=== PATIENT | male | born 1965 | race Caucasian/White ===

== ENCOUNTER 2020-11-27 08:50 | Emergency (ER) | payer MEDICAID ==
[~2020-11-27] VITALS: Ht 167.6 cm; Wt 86.2 kg
[2020-11-27 08:51] VITALS: BP 140/85
--- NOTE | 2020-11-27 09:05 | NUR ---
55 YO M BIB SELF FOR C/C OF 8/10 POINTER FINGER PAIN ON R HAND X3 WEEKS. PT REPORTS "ELECTRIC SHOCK" SENSATION THAT RADIATES TO ELBOW. PT DENIES INJURY. NO EDEMA OR REDNESS VISUALIZED. ROM INTACT. RADIAL PULSES ARE EQUAL AND REGULAR. PT TAKING ALEVE WITH NO RELIEF OF PAIN, LAST DOSE AT 0700-220MG. BED LOCKED AND IN LOWEST POSITION. SIDE RAILS X1. MED HX: DENIES NKA
--- NOTE | 2020-11-27 09:11 | NUR ---
ERMD AT BEDSIDE EVALUATING PT
[2020-11-27] MEDS ORDERED: IBUP-2213 PO (09:18)
[2020-11-27 09:29] VITALS: BP 140/85
== END 2020-11-27 09:29 | disposition home or self-care (01) ==
LOC: MED 08:50
DX: M54.10 Radiculopathy, site unspecified (principal); M79.601 Pain in right arm; R20.2 Paresthesia of skin; K21.9 Gastro-esophageal reflux disease without esophagitis
CPT/HCPCS: 99282

== ENCOUNTER 2021-12-30 16:33 | Emergency (ER) | payer SELFPAY ==
[~2021-12-30] VITALS: Ht 170.2 cm; Wt 90.7 kg
[~2021-12-30 16:33] MED LIST: IBUP-2213 PO
[2021-12-30 17:07] VITALS: BP 129/87
[2021-12-30] MEDS ORDERED: DOPPLER MC ONE (17:16)
--- NOTE | 2021-12-30 17:18 | NUR ---
PT AMBULATED TO LOBBY.
--- NOTE | 2021-12-30 17:32 | NUR ---
BIB SELF C/O LOST VOICE SINCE TUESDAY. DENIES COUGH, SORE THROAT, FEVER/CHILLS, N/V/D. STATES SLIGHT JAIN 11/05. PMH: DENIES NKA
[2021-12-30 18:39] VITALS: BP 129/87
--- NOTE | 2021-12-30 18:39 | NUR ---
Patient discharged with v/s stable. Written and verbal after care instructions given and explained. Patient verbalized understanding. Ambulatory with steady gait. All questions addressed prior to discharge. Advised to follow up with PMD.
== END 2021-12-30 18:39 | disposition home or self-care (01) ==
LOC: MED 16:33
DX: R49.0 Dysphonia (principal); K21.9 Gastro-esophageal reflux disease without esophagitis; Z79.1 Long term (current) use of non-steroidal anti-inflammatories (NSAID)
CPT/HCPCS: 99281